=== PATIENT | male | born 2000 | race Caucasian/White ===

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

== ENCOUNTER 2022-05-14 09:42 | Outpatient (CLI) | payer OTHER | END 2022-05-14 09:47 | disposition home or self-care (01) | LOC: LAB 09:42 | PROVIDERS: ATTEND Obstetrics & Gynecology | DX: Z20.828 Contact with and (suspected) exposure to other viral communicable diseases (principal) ==